=== PATIENT | female | born 1970 | race Caucasian/White ===

== ENCOUNTER 2018-04-15 08:20 | Outpatient (CLI) | payer BC ==
--- NOTE | 2018-04-15 11:26 | MRI ---
MRI BRAIN WITHOUT CONTRAST: Technique: Multiplanar, multisequence MRI images were obtained of the brain. Indications: Headache. FINDINGS: Ventricles have normal size and position. No evidence of restricted diffusion. No mass or edema. No w britany matter abnormality. Intracranial internal carotid arteries and cerebral arteries show flow voids . Dural venous sinuses appear patent. There is mucosal edema in the left maxillary sinus. IMPRESSION: 1. Unremarkable MRI brain. 2. Mucosal edema of the left maxillary sinus. POS: [facility]
--- NOTE | 2018-04-15 11:30 | MRI ---
MRI LUMBAR SPINE: 04/15/2018 HISTORY: Pain and lumbar radiculopathy. COMPARISON: 05/14/2011 TECHNIQUE: Multiplanar, multisequence MR imaging of the lumbar spine is provided without contrast. FINDINGS: The sagittal STIR imaging demonstrates no focal area of osseous marrow edema. On the basis of five lumbar type vertebral bodies, the conus medullaris terminates at the L1 level. T12-L1: Intervertebral disk height and signal intensity within normal limits with no significant hermilo tral canal or neural foraminal stenosis. L1-L2: Mild bilateral facet hypertrophy. Intervertebral disk height and signal intensity within nor mal limits with no significant central canal or neural foraminal stenosis. L2-L3: Intervertebral disk height and signal intensity is within normal limits with no significant c entral canal or neural foraminal stenosis. L3-L4: Bilateral facet hypertrophy noted, left greater than right. There is disk desiccation and mi ld disk space narrowing with minimal disk bulge. No associated central canal or neural foraminal jamil nosis. L4-L5: There is disk space narrowing, disk desiccation, and disk bulge. This disk bulge is less con spicuous than on the 05/14/2011 exam. There is a central annular tear. There is mild bilateral face t hypertrophy. There is no significant central canal or neural foraminal stenosis. L5-S1: Mild bilateral facet hypertrophy. Intervertebral disk height and signal intensity within nor mal limits with no significant central canal or neural foraminal stenosis. Imaged retroperitoneal structures demonstrate no acute findings. IMPRESSION: Mild lower lumbar spine degenerative disk disease with no significant central canal or neural foramin al stenosis. POS: [facility]
--- NOTE | 2018-04-15 11:36 | MRI ---
MRI OF THE CERVICAL SPINE WITHOUT CONTRAST: DATE: 04/15/2018. COMPARISON: None. HISTORY: Cervical spondylosis. Prior cervical spine surgery. TECHNIQUE: Multiplanar, multisequence MR imaging of the cervical spine is provided without contrast. FINDINGS: The sagittal STIR imaging demonstrates edematous change within the region of the facet joint on the l eft at C2-3 involving inferior articular facet of C2 and superior articular facet of C3. There is no significant anterolisthesis or retrolisthesis. There is mild degenerative change of the atlantoaxial interspace. Evidence of prior anterior diskectomy and fusion noted at C4-5/C5-6. C2-3: Fact and uncovertebral osteophyte formation noted on the left with moderate associated left ne ural foraminal stenosis. No significant central canal or right neural foraminal stenosis. C3-4: Disk desiccation and mild disk space narrowing. Minimal disk bulge with no associated central canal stenosis. Mild facet and uncovertebral osteophyte formation noted bilaterally with mild bilat eral neural foraminal stenosis. C4-5: Bilateral facet and uncovertebral osteophyte formation noted, right greater than left. Mild b ilateral neural foraminal stenosis. No significant central canal stenosis. C5-6: Mild facet and uncovertebral osteophyte formation noted bilaterally with no significant centra l canal or neural foraminal stenosis. C6-7: No significant central canal or neural foraminal stenosis. C7-T1: Intervertebral disk height and signal intensity appears within normal limits. No significant central canal or neural foraminal stenosis is apparent. No focal area of abnormal signal intensity is identified within the cervical cord. IMPRESSION: Postoperative and degenerative change noted within the cervical spine as detailed above. There are e dematous changes centered at the facet joint at C2-3 with associated neural foraminal stenosis. This could be degenerative or inflammatory in nature. Clinical correlation required. POS: [facility]
== END 2018-04-15 08:21 | disposition home or self-care (01) ==
LOC: MRI 08:20
PROVIDERS: ATTEND Neurological Surgery
DX: M47.812 Spondylosis without myelopathy or radiculopathy, cervical region (principal); R51 Headache; M48.02 Spinal stenosis, cervical region; M51.16 Intervertebral disc disorders with radiculopathy, lumbar region; J34.89 Other specified disorders of nose and nasal sinuses; Z98.890 Other specified postprocedural states
CPT/HCPCS: 70551; 72141; 72148

== ENCOUNTER 2022-05-23 06:34 | Day surgery (SDC) | payer BC ==
[2022-05-22 11:54] VITALS: BMI 33.9
[2022-05-23] MEDS ORDERED: Famotidine/PF 20 mg/2ml Vial ONE ×2 (08:10)
[2022-05-23] MEDS ORDERED: Midazolam HCl 2 mg/2 ml Vial ONE ×2 (08:10→08:39)
[2022-05-23] MEDS ORDERED: fentaNYL PF 100 MCG/2 ML SYRINGE ONE (08:39)
[2022-05-23] MEDS ORDERED: HYDROmorphone 0.5 MG/0.5 ML SYRINGE ONE ×3 (08:39→10:51)
[2022-05-23] MEDS ORDERED: Thrombin 5000 UNITS/5 ML VIAL ONE (08:40)
[2022-05-23] MEDS ORDERED: Lidocaine 4% Topical Sol 50 ML BOT ONE (08:46)
[2022-05-23] MEDS ORDERED: Sodium Chloride 0.9% 100 ML ONE ×2 (08:48→12:30)
[2022-05-23] MEDS ORDERED: CEFAZOLIN 2 GM VIAL ONE ×2 (08:48→12:30)
[2022-05-23] MEDS ORDERED: Glycopyrrolate 0.2 MG/ML 5 ML SYRINGE ONE (09:00)
[2022-05-23] MEDS ORDERED: PHENYLEPHRINE-NS 100 MCG/ML 10 ML SYRINGE ONE (09:00)
[2022-05-23] MEDS ORDERED: PROPOFOL 200 MG/20 ML VIAL ONE (09:00)
[2022-05-23] MEDS ORDERED: Dexamethasone 20 MG/5 ML VIAL ONE (09:00)
[2022-05-23] MEDS ORDERED: Ondansetron PF 4 MG/2 ML Vial ONE (09:00)
[2022-05-23] MEDS ORDERED: Rocuronium Bromide 10 MG/ML (10ML VIAL) ONE (09:00)
[2022-05-23] MEDS ORDERED: NEOSTIGMINE 3 MG/3 ML SYR 3 MG/3 ML SYRINGE ONE (09:00)
[2022-05-23] MEDS ORDERED: Lidocaine 1% PF 5 ML VIAL ONE (09:00)
[2022-05-23] MEDS ORDERED: Fentanyl 100 MCG/2 ML VIAL ONE (11:24)
[2022-05-23] MEDS ORDERED: HYDROcodone/Acetaminophen 5/325 mg Tablet ONE (13:53)
== END 2022-05-23 14:20 | disposition home or self-care (01) ==
LOC: SDC 06:34
PROVIDERS: ATTEND Neurological Surgery
PROC: 0PJY0ZZ Inspection of Upper Bone, Open Approach (ICD-10-PCS; principal; 2022-05-23)
PROC: 0RG10A0 Fusion of Cervical Vertebral Joint with Interbody Fusion Device, Anterior Approach, Anterior Column, Open Approach (ICD-10-PCS; principal; 2022-05-23)
DX: M47.22 Other spondylosis with radiculopathy, cervical region (principal); M47.12 Other spondylosis with myelopathy, cervical region; M48.02 Spinal stenosis, cervical region; G89.4 Chronic pain syndrome; J45.909 Unspecified asthma, uncomplicated; F17.200 Nicotine dependence, unspecified, uncomplicated; Z79.899 Other long term (current) drug therapy; Z91.040 Latex allergy status; Z98.1 Arthrodesis status
CPT/HCPCS: C1713; C1889; J1100; J1170; J2250; J2405; J2704; J3010; J3490; S0028